=== PATIENT | female | born 1955 | race Two or more races ===

== ENCOUNTER 2023-01-18 04:54 | Emergency (ER) | payer BC ==
[~2023-01-18] VITALS: Ht 160 cm; Wt 62.6 kg
[~2023-01-18 04:54] MED LIST: ACTOS15 MG; ADVIL100 MG; CRESTOR40 MG; GLIPIZIDE5 MG; GLYBURIDE1.25 MG; LISINOPRIL-HCTZ1 TAB; LISINOPRIL-HCTZ1 TAB PO; METFORMIN HYDRO25 GM; SYNTHROID50 MCG; TIROSINT150 MCG
== END 2023-01-18 09:01 | disposition home or self-care (01) ==
LOC: ER 04:54
DX: I10 Essential (primary) hypertension (principal); I11.9 Hypertensive heart disease without heart failure; E11.9 Type 2 diabetes mellitus without complications; Z91.041 Radiographic dye allergy status; R51.9 Headache, unspecified; Z79.84 Long term (current) use of oral hypoglycemic drugs